=== PATIENT | male | born 1945 | race Caucasian/White ===

== ENCOUNTER 2018-04-06 14:13 | Emergency (ER) | payer MEDICARE, BC ==
[~2018-04-06] VITALS: Ht 177.8 cm; Wt 112.9 kg
[~2018-04-06 14:13] MED LIST: ADV50250 IH; AMLO5TAB16 PO; ASPI81TA52 PO; ATOR40TA PO; ATR0.5NEB NEB; BACI1PAC7 TP; BUPR150T8 PO; DOXY-200 PO; ESOM40CA30 PO; IPRA4AER IH; MYCOL15CR TOP; NEBI2.5T3 PO; OLME20TA14 PO; PRED20TA PO; TIOT18CA3 PO
[2018-04-06 14:19] VITALS: BP 137/95
[2018-04-06 14:58] LABS: CLARITY,URINE CLEAR (Clear); COLOR,URINE YELLOW (Yellow); GLUCOSE, URINE NEGATIVE (Neg); KETONES,URINE NEGATIVE (Neg); LEUKOCYTE ESTERASE ,URINE NEGATIVE (Neg); NITRITES, URINE NEGATIVE (Neg); OCCULT BLOOD,URINE TRACE-INTACT (Neg); PH,URINE 5.5 (4.8-8.0); PROTEIN,URINE NEGATIVE (Neg); UROBILINOGEN,URINE 0.2 E.U/dL (0.2-1.0)
[2018-04-06 15:03] LABS: UA COLLECTION TYPE CLN CATCH MIDSTREAM
[2018-04-06 15:07] LABS: MUCUS STRANDS FEW /LPF (Neg); SQUAMOUS EPITHELIAL CELL,UR NONE SEEN /LPF (FEW); TRANSITIONAL EPI CELLS,URINE FEW /HPF
[2018-04-06 15:08] LABS: BACTERIA,URINE NONE SEEN /HPF (Neg); RBC,URINE 0-2 /HPF (0-2); WBC,URINE 0-4 /HPF (0-4)
[2018-04-06 16:16] LABS: BASOPHILS # (AUTO) 0.1 X10'3 (0-0.2); BASOPHILS % (AUTO) 1.1 % (0-1); EOSINOPHILS # (AUTO) 0.1 X10'3 (0-0.9); EOSINOPHILS % (AUTO) 1.4 % (0-6); HEMATOCRIT 45.4 % (42.0-52.0); LYMPHOCYTES % (AUTO) 28.2 % (21-51); MEAN CORPUSCULAR HEMOGLOBIN 28.9 PG (27.0-31.0); MEAN CORPUSCULAR VOLUME 87.6 FL (78-98); MEAN PLATELET VOLUME 8.8 FL (7.4-10.4); MONOCYTES % (AUTO) 9.1 % (2-12); NEUTROPHILS # (AUTO) 6.3 X10'3 (1.8-7.7); NEUTROPHILS % (AUTO) 60.2 % (42-75); PLATELET COUNT 227 X10'3 (140-440); RED BLOOD COUNT 5.18 X10'6 (4.70-6.10); RED CELL DISTRIBUTION WIDTH 14.4 % (11.5-14.5); WHITE BLOOD COUNT 10.5 X10'3 (4.5-11.0)
[2018-04-06 16:56] LABS: ALANINE AMINOTRANSFERASE 32 U/L (12-78); ALBUMIN 3.8 G/DL (3.4-5.0); ALBUMIN/GLOBULIN RATIO 1.1 (1.1-1.5); ALKALINE PHOSPHATASE 106 IU/L (46-116); ANION GAP 7 (8-16); ASPARTATE AMINO TRANSFERASE 18 U/L (10-37); BILIRUBIN,TOTAL 0.3 MG/DL (0.1-1.0); BLOOD UREA NITROGEN 12 MG/DL (7-18); BUN/CREATININE RATIO 12.8 (5.4-32.0); CALCIUM 9.1 MG/DL (8.5-10.1); CHLORIDE 101 MMOL/L (99-107); CREATININE 0.94 MG/DL (0.60-1.10); GLUCOSE 89 MG/DL (70-104); LIPASE 125 U/L (73-393); POTASSIUM 4.1 MMOL/L (3.5-5.1); SODIUM 138 MMOL/L (135-145); TOTAL CARBON DIOXIDE 29.6 MMOL/L (24-32); TOTAL PROTEIN 7.4 G/DL (6.4-8.2); eGFR 79 ML/MIN
[2018-04-06] MEDS: ketorolac tromethamine 15mg/ml inj. IM ONE (17:46)
[2018-04-06] MEDS: orphenadrine citrate 60mg/2ml inj. IM ONE (17:47)
[2018-04-06] MEDS ORDERED: ORPH100T2 PO (17:57)
== END 2018-04-06 18:25 | disposition home or self-care (01) ==
LOC: ER 14:14
DX: G89.29 Other chronic pain (principal); M54.5 Low back pain; J44.9 Chronic obstructive pulmonary disease, unspecified; F17.200 Nicotine dependence, unspecified, uncomplicated; Z79.899 Other long term (current) drug therapy; Z79.82 Long term (current) use of aspirin
CPT/HCPCS: 36415; 74176; 80053; 81001; 83690; 85025; 93005; 96372; 99285; J1885; J2360

== ENCOUNTER 2021-03-07 14:24 | Emergency (ER) | payer MEDICARE, BC ==
[~2021-03-07] VITALS: Ht 175.3 cm; Wt 112.7 kg
[~2021-03-07 14:24] MED LIST changes: +AMLO5TAB PO; -AMLO5TAB16 PO; -DOXY-200 PO; -ESOM40CA30 PO; +ESOM40CA49 PO; +LIDOcaine 1% W/epiNEPHrine 1:100,000 20ml vial ONE; -PRED20TA PO
[2021-03-07] MEDS ORDERED: ceFAZolin 1gm IM kit IM ONE (21:55)
[2021-03-07] MEDS ORDERED: LIDOcaine 1% W/epiNEPHrine 1:200,000 10ml vial IJ ONE (21:55)
[2021-03-07] MEDS ORDERED: bacitracin 15gm ointment TP ONE (21:55)
[2021-03-07 22:00] VITALS: BP 159/91
[2021-03-07] MEDS ORDERED: CEPH250T PO (23:05)
== END 2021-03-07 23:51 | disposition home or self-care (01) ==
LOC: ER 14:25
DX: S91.112A Laceration without foreign body of left great toe without damage to nail, initial encounter (principal); M79.675 Pain in left toe(s); J44.9 Chronic obstructive pulmonary disease, unspecified; G89.29 Other chronic pain; Z79.82 Long term (current) use of aspirin; Z79.2 Long term (current) use of antibiotics; Z79.899 Other long term (current) drug therapy; W22.8XXA Striking against or struck by other objects, initial encounter; Y93.89 Activity, other specified; Y92.89 Other specified places as the place of occurrence of the external cause; Y99.8 Other external cause status
CPT/HCPCS: 12001; 73660; 96372; 99283; J0690

== ENCOUNTER → 2021-09-27 | Day surgery (SDC) | payer MEDICARE, BC ==
[2021-09-20 15:32] LABS: BASOPHILS % (AUTO) 0.4 % (0-1); EOSINOPHILS # (AUTO) 0.2 X10'3 (0-0.9); EOSINOPHILS % (AUTO) 2.5 % (0-6); LYMPHOCYTES # (AUTO) 2.2 X10'3 (1.1-4.8); LYMPHOCYTES % (AUTO) 25.5 % (21-51); MEAN CORPUSCULAR HEMOGLOBIN 26.3 PG (27.0-31.0); MEAN CORPUSCULAR HGB CONC 32.5 g/dL (33.0-36.5); MEAN CORPUSCULAR VOLUME 80.9 FL (78-98); MEAN PLATELET VOLUME 7.1 FL (7.4-10.4); MONOCYTES # (AUTO) 0.9 X10'3 (0-0.9); MONOCYTES % (AUTO) 10.5 % (2-12); NEUTROPHILS # (AUTO) 5.3 X10'3 (1.8-7.7); NEUTROPHILS % (AUTO) 61.1 % (42-75); PRE OP HEMATOCRIT 37.6 % (42.0-52.0); PRE OP HEMOGLOBIN 12.2 g/dL (14.0-17.9); PRE OP PLATELET COUNT 314 X10'3 (140-440); RED BLOOD COUNT 4.64 X10'6 (4.70-6.10); RED CELL DISTRIBUTION WIDTH 14.9 % (11.5-14.5)
[2021-09-20 15:41] LABS: ALBUMIN 2.8 G/DL (3.4-5.0); ALBUMIN/GLOBULIN RATIO 0.6 (1.1-1.5); ALKALINE PHOSPHATASE 93 IU/L (46-116); BLOOD UREA NITROGEN 12 MG/DL (7-18); BUN/CREATININE RATIO 12.1 (5.4-32.0); CALCIUM 8.5 MG/DL (8.5-10.1); CHLORIDE 103 MMOL/L (99-107); CREATININE 0.99 MG/DL (0.60-1.10); PRE OP ALT 16 U/L (30-65); PRE OP ANION GAP 9 (8-16); PRE OP AST 11 U/L (10-37); PRE OP BILIRUB, TOTAL 0.2 MG/DL (0.0-1.0); PRE OP GLUCOSE 117 MG/DL (70-104); PRE OP POTASSIUM 3.6 MMOL/L (3.4-5.1); PRE OP SODIUM 140 MMOL/L (135-145); TOTAL CARBON DIOXIDE 27.8 MMOL/L (24-32); TOTAL PROTEIN 7.3 G/DL (6.4-8.2); eGFR 74 ML/MIN
[~2021-09-27] VITALS: Ht 175.3 cm; Wt 115.7 kg
[~2021-09-27] MED LIST changes: -ADV50250 IH; -BACI1PAC7 TP; +BUPIVAcaine 0.5% inj/PF 30 ML ONE; +BUPIVAcaine 0.5% inj/PF 30 ml vial IJ ONE; +DOCUMENT DATE & TIME OF BETA-BLOCKER PO ONE; +FLUT1BLS4 INH; +LIDOcaine 0.5% (5mg/ml) 50ml vial ONE; -LIDOcaine 1% W/epiNEPHrine 1:100,000 20ml vial ONE; +MUPI22OI30 TOP; -TIOT18CA3 PO; +albuterol 2.5 MG/3 ML nebule NEB PRN; +ceFAZolin inj. 3,000 MG in normal saline 100ml IV soln 100 ML IV ONE; +famotidine 20mg tablet PO ONE; +fentaNYL/PF 50MCG/1 ML 2ML syringe ONE; +ipratropium/albuterol 3ml nebule NEB STA; +midazolam 1 mg/ML 2ml injection ONE; +ringers solution, lacted 1,000 ML IV SCH
[2021-09-27 06:35] VITALS: BP 157/89
[2021-09-27 09:33] VITALS: BP 125/70
--- NOTE | 2021-09-27 09:33 | NUR ---
Received from OR via [facility] , accompanied by Anesthesiologist HANY and report given by Anesthesiolgist. PATIENT WITH 20G PIV LEFT UE RUNNING LR AT 100. PATIENT WITH RIGHT WRIST DRESSING THAT IS CDI. DENIES PAIN. FINGERS WITH + CSM. Addendum: 09/27/21 at 0959 by Basil Garcia RN, RN Amended: Links added.
[2021-09-27 09:40] VITALS: BP 143/69
[2021-09-27 09:50] VITALS: BP 124/61
[2021-09-27 10:00] VITALS: BP 118/81
--- NOTE | 2021-09-27 10:13 | NUR ---
ALL DISCHARGE CRITERIA HAS BEEN MET. VSS, PAIN AT A TOLERABLE LEVEL, ABLE TO SAFELY AMBULATE AND TRANSFER SELF. IV TAKEN OUT WITHOUT ANY COMPLICATIONS. ALL DISCHARGE INSTRUCTIONS COVERED WITH PATIENT AND ALL QUESTIONS ANSWERED. PATIENT TAKEN OUT VIA WHEELCHAIR TO PERSONAL VEHICLE WHERE FAMILY/FRIEND DROVE PATIENT HOME. Addendum: 09/27/21 at 1017 by Basil Garcia RN, RN Amended: Links added. Addendum: 09/27/21 at 1021 by Basil Garcia RN, RN 1013 WAS TIME FOR THIS NOTE
== END | disposition home or self-care (01) ==
LOC: PAS 06:30
PROVIDERS: ATTEND Orthopaedic Surgery Hand Surgery
DX: G56.01 Carpal tunnel syndrome, right upper limb (principal); F17.210 Nicotine dependence, cigarettes, uncomplicated; J44.9 Chronic obstructive pulmonary disease, unspecified; I10 Essential (primary) hypertension; M19.90 Unspecified osteoarthritis, unspecified site; G47.33 Obstructive sleep apnea (adult) (pediatric); E66.9 Obesity, unspecified; Z68.37 Body mass index [BMI] 37.0-37.9, adult; Z20.822 Contact with and (suspected) exposure to COVID-19; Z79.899 Other long term (current) drug therapy; Z79.82 Long term (current) use of aspirin; Z98.890 Other specified postprocedural states; Z98.1 Arthrodesis status; Z98.49 Cataract extraction status, unspecified eye; Z72.89 Other problems related to lifestyle
CPT/HCPCS: 36415; 64721; 80053; 82948; 85025; 93005; 94640; 94760; A6222; J0690; J2250; J3010; J3490; J7030; J7120; S0020; U0003; U0005; Z7506; Z7512; A4215; A6449

== ENCOUNTER 2021-11-18 05:50 | Day surgery (SDC) | payer MEDICARE, BC ==
[2021-11-12 14:02] LABS: BASOPHILS % (AUTO) 0.6 % (0-1); EOSINOPHILS # (AUTO) 0.3 X10'3 (0-0.9); EOSINOPHILS % (AUTO) 3.2 % (0-6); LYMPHOCYTES # (AUTO) 2.2 X10'3 (1.1-4.8); LYMPHOCYTES % (AUTO) 26.8 % (21-51); MEAN CORPUSCULAR HEMOGLOBIN 25.9 PG (27.0-31.0); MEAN CORPUSCULAR HGB CONC 32.5 g/dL (33.0-36.5); MEAN CORPUSCULAR VOLUME 79.6 FL (78-98); MEAN PLATELET VOLUME 7.1 FL (7.4-10.4); MONOCYTES # (AUTO) 0.8 X10'3 (0-0.9); MONOCYTES % (AUTO) 10.1 % (2-12); NEUTROPHILS # (AUTO) 4.8 X10'3 (1.8-7.7); NEUTROPHILS % (AUTO) 59.3 % (42-75); PRE OP PLATELET COUNT 281 X10'3 (140-440); RED BLOOD COUNT 4.65 X10'6 (4.70-6.10)
[2021-11-12 14:18] LABS: ALBUMIN 2.9 G/DL (3.4-5.0); ALBUMIN/GLOBULIN RATIO 0.7 (1.1-1.5); ALKALINE PHOSPHATASE 104 IU/L (46-116); BLOOD UREA NITROGEN 6 MG/DL (7-18); BUN/CREATININE RATIO 6.4 (5.4-32.0); CALCIUM 8.5 MG/DL (8.5-10.1); CHLORIDE 107 MMOL/L (99-107); CREATININE 0.94 MG/DL (0.60-1.10); PRE OP ALT 16 U/L (30-65); PRE OP ANION GAP 10 (8-16); PRE OP AST 13 U/L (10-37); PRE OP BILIRUB, TOTAL 0.2 MG/DL (0.0-1.0); PRE OP GLUCOSE 129 MG/DL (70-104); PRE OP POTASSIUM 3.6 MMOL/L (3.4-5.1); PRE OP SODIUM 144 MMOL/L (135-145); TOTAL CARBON DIOXIDE 26.8 MMOL/L (24-32); TOTAL PROTEIN 7.2 G/DL (6.4-8.2); eGFR 78 ML/MIN
[~2021-11-18] VITALS: Ht 175.3 cm; Wt 116.2 kg
[~2021-11-18 05:50] MED LIST changes: -ASPI81TA52 PO; -BUPIVAcaine 0.5% inj/PF 30 ML ONE; -BUPIVAcaine 0.5% inj/PF 30 ml vial IJ ONE; -LIDOcaine 0.5% (5mg/ml) 50ml vial ONE; -albuterol 2.5 MG/3 ML nebule NEB PRN; +ceFAZolin inj. 2,000 MG in dextrose 5%-water 100 ML IV ONE; -ceFAZolin inj. 3,000 MG in normal saline 100ml IV soln 100 ML IV ONE; -fentaNYL/PF 50MCG/1 ML 2ML syringe ONE; -ipratropium/albuterol 3ml nebule NEB STA; -midazolam 1 mg/ML 2ml injection ONE
[2021-11-18 06:10] VITALS: BP 132/65
[2021-11-18] MEDS ORDERED: albuterol 2.5 MG/3 ML nebule NEB ONE (06:50)
[2021-11-18] MEDS ORDERED: BUPIVAcaine/PF 2.5mg/ml (0.25%) 10ml vial ONE (06:51)
[2021-11-18] MEDS ORDERED: fentaNYL/PF 50MCG/1 ML 2ML syringe IV PRN ×2 (07:55)
[2021-11-18] MEDS ORDERED: ringers solution, lacted 1,000 ML IV SCH (07:55)
[2021-11-18] MEDS ORDERED: morphine 2 MG/ML inj. syringe IV PRN (07:55)
[2021-11-18] MEDS ORDERED: hydrALAZINE 20mg/ml inj. IV PRN (07:55)
[2021-11-18] MEDS ORDERED: labetalol 20mg/4ml (5mg/ml) syringe IV PRN (07:55)
[2021-11-18] MEDS ORDERED: morphine 4 MG/ML inj SYRINge IV PRN (07:55)
[2021-11-18] MEDS ORDERED: ondansetron/PF 4mg/2ml inj IV PRN (07:55)
[2021-11-18] MEDS ORDERED: fentaNYL/PF 50MCG/1 ML 2ML syringe ONE (08:48)
[2021-11-18] MEDS ORDERED: MIDAZolam 1 MG/ML 5ML VIAL ONE (08:48)
[2021-11-18] MEDS ORDERED: LIDOcaine 0.5% (5mg/ml) 50ml vial ONE (08:49)
[2021-11-18] MEDS ORDERED: labetalol 20mg/4ml (5mg/ml) syringe IV ONE (08:54)
[2021-11-18 09:04] VITALS: BP 134/75
--- NOTE | 2021-11-18 09:04 | NUR ---
Received from OR via [facility], accompanied by Anesthesiologist DR. GAFFNEY and report given by Anesthesiolgist. RECENT BACK SURGERY. RIGHT WRIST 20G PIV WITH LR RUNNING AT 100ML/HR. LEFT WRIST DRESSING CDI. VSS. LABETALOL GIVEN IN OR FOR HYPERTENSION. 10L MASK AT 98%. VSS SYSTOLIC 134.
[2021-11-18 09:14] VITALS: BP 134/81
[2021-11-18 09:24] VITALS: BP 144/81
[2021-11-18 09:34] VITALS: BP 135/85
[2021-11-18 09:44] VITALS: BP 129/83
--- NOTE | 2021-11-18 09:44 | NUR ---
PATIENT MEETS DISCHARGE CRITERIA. PATIENT UNDERSTOOD ALL DISCHARGE INSTRUCTIONS AND FOLLOW UP. ALL BELONGINGS SENT WITH PATIENT, WALKER GIVEN TO , JANELL. PATIENT ESCORTED OUT BY VOLUNTEER, NICK.
== END 2021-11-18 09:44 | disposition home or self-care (01) ==
LOC: PAS 05:50
PROVIDERS: ATTEND Orthopaedic Surgery Hand Surgery
DX: G56.02 Carpal tunnel syndrome, left upper limb (principal); K21.9 Gastro-esophageal reflux disease without esophagitis; E66.9 Obesity, unspecified; Z68.38 Body mass index [BMI] 38.0-38.9, adult; M21.372 Foot drop, left foot; I10 Essential (primary) hypertension; J44.9 Chronic obstructive pulmonary disease, unspecified; G47.30 Sleep apnea, unspecified; M19.071 Primary osteoarthritis, right ankle and foot; F90.9 Attention-deficit hyperactivity disorder, unspecified type; F17.210 Nicotine dependence, cigarettes, uncomplicated; Z86.711 Personal history of pulmonary embolism; Z79.899 Other long term (current) drug therapy; Z79.82 Long term (current) use of aspirin; Z98.49 Cataract extraction status, unspecified eye; Z98.890 Other specified postprocedural states; Z72.89 Other problems related to lifestyle
CPT/HCPCS: 36415; 64721; 80053; 82948; 85025; 94640; 94760; J0690; J2250; J3010; J3490; J7030; J7060; J7120; Z7506; Z7512; A4215